=== PATIENT | female | born 1995 | race Caucasian/White ===

== ENCOUNTER 2025-07-24 13:51 | Inpatient (IN) | payer MEDICAID ==
[~2025-07-24] VITALS: Ht 154.9 cm; Wt 66.7 kg
[2025-07-24 15:53] LABS: PLATELET COUNT (AUTO) 370 K/uL (150-450); RED BLOOD CELL COUNT(AUTO) 4.18 MIL/uL (4.00-5.20); RED CELL DISTRIBUTION WIDTH 15.6 % (11.5-14.5); WHITE BLOOD COUNT (AUTO) 14.7 K/uL (4.5-11.0)
[2025-07-24 15:56] LABS: CALCIUM, TOTAL 8.9 mg/dL (8.8-10.5); CREATININE 0.76 mg/dL (0.60-1.30); GLOMERULAR FILTR. RATE CALC > 60 mL/min (>60); GLUCOSE,RANDOM 99 mg/dL (70-110); SODIUM SERUM 136 mmol/L (136-145); UREA NITROGEN, BLOOD 15 mg/dL (7-18)
[2025-07-24] MEDS: HYDROCODONE/ACETAMINOPHEN 5-325 MG TABLET PO ONE (16:18)
[2025-07-24] MEDS: SODIUM CHLORIDE 0.9% 1,000 ML IV ONE (16:19)
[2025-07-24] MEDS: VANCOMYCIN HCL 1 GM in DEXTROSE 5%-WATER 250 ML IV ONE (16:22)
[2025-07-24 18:59] LABS: LACTIC ACID 1.7 mmol/L (0.4-2.0)
[2025-07-24] MEDS ORDERED: SODIUM CHLORIDE 0.9% 100 ML ONE (19:40)
[2025-07-24] MEDS ORDERED: IOHEXOL 350 MG/ML 100 ML VIAL ONE (19:40)
[2025-07-24] MEDS ORDERED: 0.9% SODIUM CHLORIDE 10 ML SYRINGE IVP PRN (19:45)
[2025-07-24] MEDS: SODIUM CHLORIDE 0.9% 1,750 ML IV ONE (20:12)
[2025-07-24] MEDS ORDERED: MORPHINE SULFATE 4 MG/ML SYRINGE IVP PRN (21:00)
[2025-07-24] MEDS ORDERED: INSULIN LISPRO 100 UNITS/ML SQ PRN (21:00)
[2025-07-24] MEDS ORDERED: NALOXONE HCL 1 MG/ML 2 ML SYRINGE IVP PRN (21:00)
[2025-07-24] MEDS ORDERED: ONDANSETRON HCL 4 MG/2 ML VIAL IVP PRN (21:00)
[2025-07-24] MEDS ORDERED: DEXTROSE 50%-WATER 25 GM/50 ML SYRINGE IVP PRN (21:00)
[2025-07-24] MEDS ORDERED: ACETAMINOPHEN 325 MG TABLET PO PRN (21:00)
[2025-07-24] MEDS: DOCUSATE SODIUM 100 MG CAPSULE PO SCH (21:41)
[2025-07-24] MEDS: RINGERS SOLUTION,LACTATED 1,000 ML IV SCH (23:00)
[2025-07-24 23:13] LABS: APPEARANCE,URINE CLEAR (CLEAR); GLUCOSE, URINE (UA) NEGATIVE (NEGATIVE); LEUKOCYTE ESTERASE ,URINE NEGATIVE (NEGATIVE); NITRATE,URINE NEGATIVE (NEGATIVE); OCCULT BLOOD,URINE NEGATIVE (NEGATIVE)
[2025-07-24] MEDS: CefTRIAXone 1 GM/DEXTROSE 50 ML IV SCH (23:15)
[2025-07-24 23:36] LABS: SPECIFIC GRAVITIY, URINE 1.030 (1.003-1.030)
[2025-07-25 01:07] VITALS: BP 115/76; PULSE 76; RESP 16; TEMP 98.1; O2SAT 100
[2025-07-25] MEDS: HEPARIN SODIUM,PORCINE 5,000 UNITS/ML VIAL SQ SCH (01:38)
[2025-07-25] MEDS: VANCOMYCIN HCL 750 MG in DEXTROSE 5%-WATER 250 ML IV SCH (02:07)
[2025-07-25 04:29] VITALS: BP 112/73; PULSE 101; RESP 18; TEMP 98.1; O2SAT 98
[2025-07-25 05:16] LABS: GLUCOMETER DEV NAME(LOC) 5N.1D; GLUCOSE,POINT OF CARE 109 MG/DL (70-110)
[2025-07-25 06:41] LABS: PLATELET COUNT (AUTO) 295 K/uL (150-450); RED BLOOD CELL COUNT(AUTO) 3.42 MIL/uL (4.00-5.20); RED CELL DISTRIBUTION WIDTH 15.2 % (11.5-14.5); WHITE BLOOD COUNT (AUTO) 11.9 K/uL (4.5-11.0)
[2025-07-25 07:28] VITALS: BP 111/67; PULSE 96; RESP 18; TEMP 98.1; O2SAT 97
[2025-07-25 07:44] LABS: CALCIUM, TOTAL 8.1 mg/dL (8.8-10.5); CREATININE 0.71 mg/dL (0.60-1.30); GLOMERULAR FILTR. RATE CALC > 60 mL/min (>60); GLUCOSE,RANDOM 136 mg/dL (70-110); SODIUM SERUM 139 mmol/L (136-145); UREA NITROGEN, BLOOD 11 mg/dL (7-18)
[2025-07-25 11:15] VITALS: BP 105/65; PULSE 65; RESP 18; TEMP 98.6; O2SAT 98
[2025-07-25] MEDS ORDERED: SULF1TAB42 PO (14:18)
[2025-07-25] MEDS ORDERED: CEPH-558 PO (14:18)
== END 2025-07-25 15:18 | disposition home or self-care (01) | DRG 720 ==
LOC: EMS 13:51 → EDH 20:46 → 5N 07-25
PROVIDERS: ADMIT Internal Medicine; ATTEND Internal Medicine
DX: A41.9 Sepsis, unspecified organism (principal); E87.3 Alkalosis; L03.115 Cellulitis of right lower limb; M70.50 Other bursitis of knee, unspecified knee; R80.9 Proteinuria, unspecified
CPT/HCPCS: 71045; 73701; 80048; 81003; 82962; 83605; 83735; 84145; 84703; 85025; 87040; 87205; 93005; 96361; 96365; 96366; 96367; 99291; G0378; J0696; J1644; J3373; J3374; J7030; J7050; J7060; J7120; 36415-L1; 36415-TC